=== PATIENT | female | born 1990 | race Caucasian/White ===

== ENCOUNTER → 2023-07-04 11:31 | Outpatient (REF) | payer OTHER, SELFPAY | LOC: HWRAD 11:31 | PROVIDERS: ATTENDING PHYSICIAN Nurse Practitioner Adult Health | DX: R07.81 Pleurodynia (principal) | CPT/HCPCS: 71101 ==

== ENCOUNTER 2024-11-04 11:41 | Emergency (ER) | payer OTHER, SELFPAY ==
[2024-11-04 11:43] VITALS: BP 109/75
[2024-11-04 13:02] LABS: Hematocrit 36.2 % (37.0-47.0); Hemoglobin 12.2 g/dL (12.0-16.0); Mean Corp Hgb Conc. 33.7 g/dL (33.0-37.0); Mean Corpuscular Volume 85.8 fL (81.0-99.0); Nucleated Red Blood Cells % 0 %; Platelet Count 303 10^3/uL (130-400); Red Cell Dist. Width 12.9 % (11.5-14.5)
--- NOTE | 2024-11-04 13:09 | ED.GENMED ---
History of Present Illness
General
Chief Complaint: Abdominal Pain
Source: patient
Exam Limitations: none
Time Seen by Provider: 11/04/24 12:08
Nursing documentation reviewed up to this point in time: agreed with
History of Present Illness
History of Present Illness:
34-year-old female past medical history of partial nephrectomy presenting to the emergency department today with concerns of abdominal pain mainly to the left lower quadrant worsening over the past few days. Initially had some diarrhea and
constipation and mixed bowel movements. Had some nausea a week ago which has since resolved. Denies any fevers but pain is specifically worsening over the past 24 hours.
Past History
Past History
ED Past Medical History: Other (bipolar)
ED Past Surgical History: Gynecological
Review of Systems
Review of Systems
Allergies reviewed?: Yes
All Other Systems: ROS reviewed and negative except as documented in HPI and ROS
Phy Exam
Physical Exam
Physical Exam:
GENERAL: Alert , in no apparent distress
EYE: pupils equal and reactive
NECK: Supple, no significant adenopathy.
ENT: o/p clr, mmm.
CARDIAC: Regular rate and rhythm .
LUNGS: Clear breath sounds bilaterally, no acute respiratory distress, no wheezes/rales/rhonchi
ABDOMEN: Vague abdominal pain maximal to the left lower quadrant.
NEUROLOGICAL: Alert and oriented, no focal neuro deficits
SKIN: Warm and dry, skin intact.
MUSCULOSKELETAL: No edema, well perfused.
PSYCH: Normal and appropriate interaction.
Course
Orders/Labs/Results
Orders:
Orders
11/04/24 12:43
CT Abd/Pel (IV only)-DH only Urgent
Comment:
Reason For Exam: llq pain
Urinalysis Reflex To Culture Urgent
Test Result ONCE
11/04/24 12:47
Complete Blood Count/With Diff Urgent
Comprehensive Metabolic Panel Urgent
HCG, Serum Qualitative Screen Urgent
Lipase Urgent
Abnormal Lab Results
11/04/24
12:47
Hct 36.2 L %
(37.0-47.0)
Chloride 109 H mmol/L
(98-107)
11/04/24 12:47
11/04/24 12:47
Vital Signs
Initial and Last Documented VS:
Initial Vital Signs
Temp Pulse Resp BP Pulse Ox
98.4 F 68 20 109/75 97
11/04/24 11:43 11/04/24 11:43 11/04/24 11:43 11/04/24 11:43 11/04/24 11:43
Last Documented Vital Signs
Temp Pulse Resp BP Pulse Ox
98.4 F 78 16 115/74 98
11/04/24 11:43 11/04/24 15:13 11/04/24 16:00 11/04/24 15:13 11/04/24 15:13
MDM/Problems Addressed
MDM/Problems Addressed:
34-year-old female presenting to the emergency department mainly with lower quadrant abdominal pain worsening over the past few days. Had some vague abdominal symptoms 1 week ago. Has had intermittent diarrhea and constipation over the past few
days as well. Here tenderness mainly to the left lower quadrant plan for CT scan for further assessment. CT scan without emergent findings labs are unremarkable. Patient without any evidence of emergent pathology explaining symptoms stable for
discharge at this time.
*Pulse Oximetry
SaO2: 97
Oxygen Mode of Delivery: Room air
Patient hypoxic: no (98)
*Critical Care Note
Total Time (30-74mins, 75-104mins- exclusive of procedures): Not Applicable
ED Attending Note
-
Portions of this chart may have been created with voice recognition software.� Occasional wrong word or��sound alike� substitutions may have occurred due to the inherent limitations of voice recognition software.
Discharge Plan
Departure
Patient Disposition: Home (Routine Discharge)
Date of Disposition: 11/04/24
Time of Disposition: 16:07
Patient with high blood pressure during this ER visit?: No
Condition: Good
Covid-19: Not Applicable
Discharge Problem:
Abdominal pain
Instructions: Abdominal Pain
Prescriptions:
New
dicyclomine 20 mg tablet
20 mg PO QID PRN (Reason: abdominal pain) Qty: 10 0RF
Referrals:
Lisa Colon CRNP [Family Provider, General]
Activity Restrictions/Additional Instructions:
You came to the emergency department today with concerns of abdominal pain. Here you have a reassuring assessment. Please follow close with the primary care doctor. Return for any worsening, new or concerning symptoms.
Interventions
Interventions:
*Risk Screen - Suicide Last Done: 11/04/24 11:43
*General Assessment Last Done: 11/04/24 12:43
*Neglect/Abuse Screening Last Done: 11/04/24 11:43
*ED- Fall Risk Assessment Last Done: 11/04/24 12:34
*ED COVID-19 Vaccine History Last Done: 11/04/24 12:34
DP-Cjypiu-Ksjlscmyuk Assessment Last Done: 11/04/24 12:35
Discharge Date and Time
Print Language: YORUBA
[2024-11-04 13:18] LABS: ALT (SGPT) 11 U/L (0-35); AST (SGOT) 18 U/L (14-36); Albumin 4.2 g/dl (3.5-5.0); Alkaline Phosphatase 56 U/L (38-126); Blood Urea Nitrogen 10 mg/dl (7-17); Calcium 8.9 mg/dl (8.4-10.2); Carbon Dioxide 24 mmol/L (22-30); Chloride 109 mmol/L (98-107); Glucose 85 mg/dl (70-99); Lipase 51 U/L (23-300); Potassium 4.3 mmol/L (3.5-5.1); Sodium 139 mmol/L (135-145); Total Protein 7.1 g/dl (6.3-8.2); eGFR > 60.00
[2024-11-04 13:27] LABS: HCG, Serum Qualitative Screen Negative
[2024-11-04 15:13] VITALS: BP 115/74
== END 2024-11-04 16:15 | disposition home or self-care (01) ==
LOC: EMR 11:41
PROVIDERS: Physician Assistant; EMERGENCY PHYSICIAN Student in an Organized Health Care Education/Training Program; FAMILY PHYSICIAN Nurse Practitioner Adult Health
DX: R10.32 Left lower quadrant pain (principal); R19.4 Change in bowel habit; F31.9 Bipolar disorder, unspecified; M19.90 Unspecified osteoarthritis, unspecified site; F41.9 Anxiety disorder, unspecified; Z90.5 Acquired absence of kidney
CPT/HCPCS: 99284; 74177; 80053; 83690; 84703; 85025; Q9967